=== PATIENT | male | born 1985 | race Caucasian/White ===

== ENCOUNTER 2016-10-15 14:19 | Inpatient (IN) | payer OTHER ==
[~2016-10-15] VITALS: Ht 180.3 cm; Wt 89.8 kg
--- NOTE | 2016-10-15 20:40 | NUR ---
PRE ASSESSMENT Pt received in intake. Pt alert and oriented to name, place, and time. Perrla. Skin warm and dry to touch. Respirations even and unlabored. Bilateral hand tremors noted slightly. PU=029/80, p=80 TEMP=98.0, RR=18 sPO2=98%@ra and denies any pain at this time. Pt with pressured speech noted. Pt anxious, tapping foot and hand fidgety. Informed pt about unit rules and patio passes. Pt. will be accepted to [facility]
[2016-10-15] MEDS ORDERED: MAGNESIUM HYDROXIDE 30 ML LIQUID UDC PO PRN (21:00)
[2016-10-15] MEDS ORDERED: ONDANSETRON 4 MG/2 ML VIAL IM PRN (21:00)
[2016-10-15] MEDS ORDERED: ONDANSETRON ODT 4 MG TAB.RAPDIS SL PRN (21:00)
[2016-10-15] MEDS ORDERED: THIAMINE HCL 200 MG/2 ML VIAL IM ONE (21:00)
[2016-10-15] MEDS ORDERED: MIRALAX 17 GM POWD.PACK PO PRN (21:00)
[2016-10-15] MEDS ORDERED: LOPERAMIDE HCL 2 MG CAPSULE PO PRN ×2 (21:00)
[2016-10-15] MEDS ORDERED: DICYCLOMINE HCL 20 MG TABLET PO PRN (21:00)
[2016-10-15] MEDS ORDERED: LORAZEPAM 2 MG/1 ML VIAL IM PRN (21:00)
[2016-10-15] MEDS ORDERED: LORAZEPAM 1 MG TABLET PO PRN ×2 (21:00)
[2016-10-15] MEDS ORDERED: ACETAMINOPHEN 325 MG TABLET PO PRN (21:00)
[2016-10-15 21:11] LABS: *AMPHETAMINE, URINE NEGATIVE (NEGATIVE); *BARBITURATE, URINE NEGATIVE (NEGATIVE); *CANNABINOID, URINE NEGATIVE (NEGATIVE); *COCCAINE, URINE NEGATIVE (NEGATIVE); *OPIATE, URINE NEGATIVE (NEGATIVE); *PHENCYCLIDINE SCREEN,URINE NEGATIVE (NEGATIVE)
[2016-10-15 21:21] LABS: BASOPHILS # (AUTO) 0.1 K/uL (0.0-8.0); BASOPHILS % (AUTO) 0.9 % (0.0-2.0); EOSINOPHILS # (AUTO) 0.3 K/uL (0.0-0.7); HEMOGLOBIN 14.5 G/DL (14.0-18.0); LYMPHOCYTES # (AUTO) 1.7 K/UL (0.8-4.8); LYMPHOCYTES % (AUTO) 26.2 % (20.5-51.5); MEAN CORPUSCULAR HEMOGLOBIN 31.9 UUG (27.0-31.0); MEAN CORPUSCULAR HGB CONC 34 g/dL (32.0-37.0); MEAN CORPUSCULAR VOLUME 94.4 FL (82.0-92.0); MONOCYTES # (AUTO) 0.7 K/UL (0.1-1.30); MONOCYTES % (AUTO) 10.2 % (0.0-11.0); NEUTROPHILS # (AUTO) 3.7 K/UL (1.8-8.9); NEUTROPHILS % (AUTO) 58.7 % (38.5-71.5); PLATELET COUNT (AUTO) 223 K/UL (150-450); RED BLOOD CELL COUNT(AUTO) 4.55 MIL/UL (4.7-6.1); WHITE BLOOD COUNT (AUTO) 6.5 K/UL (4.0-11.2)
[2016-10-15 21:50] LABS: BILIRUBIN,TOTAL 0.2 mg/dL (0.2-1.0); CREATININE 0.9 mg/dL (0.6-1.3); POTASSIUM 3.8 mmol/L (3.5-5.1); TOTAL PROTEIN, SERUM 7.2 g/dL (6.4-8.2)
--- NOTE | 2016-10-15 22:00 | NUR ---
ADMISSION NOTE : Pt 31 y/o male admitted for ETOH/VODKA dependence. Pt alert and oriented to name, place, and time. Perrla. No history of seizures. Skin warm and dry to touch. Resprirations even and unlabored. Bilateral hand tremors noted. Pt appears anxious, with pressured speech, and is fidgety while in bed during. NKA, FULL CODE, on Reg.Diet. Primary care Provider is Dr. Corazon Lynn from [place], [place]. Skin condition checked : old scabs on left shoulder and knee. Upon admission VJ=155/80, HR=80, RR=16, unlabored and even , SpO2=98% with RA, Temp=98.1, Ccewvx=400fwg, Nowbop=863. Last BM was on 10/15/2016. Pt. was able to provide UDS and blood for the lab. Oriented pt to unit and room. CIWA=4. Safety precautions are in place. Bed locked in lowest position. Both side rails up. Call light within pts reach. Will continue to monitor patient. SUBSTANCE USE HISTORY : Vodka 500ml QD PO since 2009, last drink was on 10/15/16 , uses since 2004 Tobacco chewing QD PO since , last use on MEDICAL HISTORY : Anxiety, Depression, Bipolar, left wrist fracture in 09/2016 [place] HISTORY : X2 Detox X2 REHAB. FAMILY HISTORY : Father and mother are alcoholics, father has Dx HTN.
[2016-10-15] MEDS ORDERED: NICOTINE 14 MG/24HR PATCH TD ONE (22:04)
[2016-10-15] MEDS ORDERED: THIAMINE HCL 200 MG/2 ML VIAL ONE (22:04)
[2016-10-15] MEDS ORDERED: MAG HYDROX/AL HYDROX/SIMETH 30 ML LIQUID UDC ONE (22:07)
[2016-10-15 22:15] LABS: THYROID STIMULATING HORMONE 1.788 mIU/mL (0.358-3.740)
[2016-10-15] MEDS: NICOTINE 14 MG/24HR PATCH TD SCH (22:23)
[2016-10-15] MEDS: MAG HYDROX/AL HYDROX/SIMETH 30 ML LIQUID UDC PO PRN (22:24)
[2016-10-15] MEDS ORDERED: MG T1TAB4 PO (22:59)
[2016-10-15] MEDS ORDERED: BUDE10.22 IH (22:59)
[2016-10-15] MEDS ORDERED: ALBU18HF2 INH (23:00)
[2016-10-15] MEDS ORDERED: LORAZEPAM 1 MG TABLET PO ONE (23:00)
[2016-10-16] VITALS: BP 145/80
[2016-10-16 04:00] VITALS: BP 116/79
--- NOTE | 2016-10-16 06:34 | NUR ---
END OF SHIFT NOTE : Pt 31 y/o male admitted for ETOH/VODKA dependence to [facility] on 10/15/2016. Pt alert and oriented to name, place, and time. Perrla. No history of seizures. Skin warm and dry to touch. Bilateral hand tremors noted. Pt appears anxious, with pressured speech, and is fidgety while in bed during. NKA, FULL CODE, on Reg. Diet. Pt. will be placed on 5 day Ativan taper today, on 10/16/2016. Skin condition checked : old scabs on left shoulder and knee. Pt remains compliant with the treatment plan. No PRNs were given during my shift. Pt. refused his evening dose of Ativan. V/S remain WNL. RR=16, even and unlabored, lungs clear upon auscultation, abdomen soft and non- distended. Pt denies nausea, vomiting and diarrhea. LAST CIWA= 4 at 0400 , INTAKE= 2,000 ml, voided x 3, slept 5 hours. Safety precautions are in place. Bed locked in lowest position. Both side rails up. Call light within pts reach. Will continue to monitor patient.
--- NOTE | 2016-10-16 07:00 | NUR ---
Start of Shift Notes: Received patient in his room. Alert and oriented x 4. Verbally responsive. Able to make his needs known. Respirations even and unlabored. No SOB noted. Skin warm and dry to touch. Abdomen soft and non-distended with (+) BS in all 4 quadrants. No complains of N/V/D or constipation noted. No complains of abdominal discomfort. Bladder non-distended. Voids indepdently. Ambulatory ad evelyn with steady gait. Patient is a 31 year old male admitted for ETOH dependence who was placed on a 5-day Ativan taper as ordered. Has past medical hx of asthma, depression and bipolar disorder. NKA. FULL CODE. Regular diet. on fall and seizure precautions. Educated patient on his current plan of care for the day and his medication regimen. Encouraged oral fluid intake and encouraged group participation to learn new skills to prevent relapse. Will continue to monitor closely.
[2016-10-16 08:00] VITALS: BP 133/69
[2016-10-16] MEDS: MULTIVITAMINS,THERAPEUTIC TABLET PO SCH (08:49)
[2016-10-16] MEDS: FOLIC ACID 1 MG TABLET PO SCH (08:49)
[2016-10-16] MEDS: THIAMINE HCL 100 MG TABLET PO SCH (08:49)
[2016-10-16] MEDS: LORAZEPAM 1 MG TABLET PO SCH ×4 (08:49→20:46)
[2016-10-16] MEDS ORDERED: ATOM40CA PO (08:53)
[2016-10-16] MEDS ORDERED: TUBERCULIN,PURIF.PROT.DERIV. 5 TU/0.1 ML TEST ID ONE (09:00)
[2016-10-16] MEDS: NICOTINE 14 MG/24HR PATCH TD SCH (09:00)
[2016-10-16] MEDS: PATIENT MAY USE OWN MED- MD OK INH SCH ×2 (09:00→16:43)
--- NOTE | 2016-10-16 09:59 | NUR ---
Nicoderm patch and Symbicort not administered: Patient refused Nicoderm patch at this time. Education provided on smoking cessation. Still requires further education on smoking cessation. Symbicort refused at this time. Education provided on the risk and the benefits but patient still refused. Per MD, he feel OK at this time. Lung sounds clear bilaterally. No wheezing heard on bilateral lung pak.
[2016-10-16 12:00] VITALS: BP 138/80
[2016-10-16] MEDS: MAG HYDROX/AL HYDROX/SIMETH 30 ML LIQUID UDC PO PRN (12:03)
--- NOTE | 2016-10-16 12:03 | NUR ---
Mylanta and Imodium 4 mg PO given: Patient noted with x 2 episodes of loose watery stools and complains of GI upset. Medicated patient with Mylanta 30cc and Imodium 4 mg PO as ordered. Will monitor for effectiveness.
--- NOTE | 2016-10-16 13:03 | NUR ---
Re-assessment: Per patient, PRN Mylanta and Imodium were effective in reducing GI upset. No further episodes of diarrhea noted since med administration.
--- NOTE | 2016-10-16 14:23 | NUR ---
Clinician encouraged client to attend groups and explained the group times.
[2016-10-16 16:00] VITALS: BP 109/60
--- NOTE | 2016-10-16 18:50 | NUR ---
End of Shift Notes: Patient is a 31 year old male admitted for ETOH dependence who was placed on a 5-day Ativan taper as ordered. No adverse reactions noted. Patient is on his 1st day of his taper. Tolerating well. Prior to admission, patient was using 500ml of Vodka. VS monitored closely. No significant abnormalities noted. Withdrawal symptoms were closely monitored. Initial CIWA 13. Patient presented with anxiety, agitation, facial flushing, and gross tremors. Last CIWA 5. Per patient, Ativan has been helping him with his withdrawal symptoms. Patient was able to participate in group despite his withdrawal symptoms. Refused Nicotine gum in AM. Imodium and Mylanta PO given at 1203 for GI upset and diarrhea with help after 1 hour. Educated patient on smoking cessation. Oral fluids encouraged. Safety precautions in place. All needs met and attended. Will continue to monitor closely.
--- NOTE | 2016-10-16 19:00 | NUR ---
PRN MOTRIN, BENADRYL Pt. complains of body ache 6/10, sleeplessness. PRN MOTRIN, BENADRYL given as ordered. Safety precautions are in place. Bed locked in lowest position. Both side rails up. Call light within pts reach. Will continue to monitor patient.
--- NOTE | 2016-10-16 19:15 | NUR ---
START OF SHIFT NOTE : Pt 31 y/o male admitted for ETOH/VODKA dependence to [facility] on 10/15/2016. Pt alert and oriented to name, place, and time. Perrla. No history of seizures. Skin warm and dry to touch. Bilateral hand tremors noted. Pt appears anxious, with pressured speech, and is fidgety while in bed during. NKA, FULL CODE, on Reg. Diet. Pt. will placed on 5 day Ativan taper today on 10/16/2016. Skin condition checked : old scabs on left shoulder and knee. Pt remains compliant with the treatment plan. V/S remain WNL. RR=16, even and unlabored, lungs clear upon auscultation, abdomen soft and non- distended. Pt denies nausea, vomiting. Safety precautions are in place. Bed locked in lowest position. Both side rails up. Call light within pts reach. Will continue to monitor patient.
[2016-10-16 20:00] VITALS: BP 133/87
[2016-10-16] MEDS: IBUPROFEN 400 MG TABLET PO PRN (20:46)
[2016-10-16] MEDS: diphenhydrAMINE 50 MG CAPSULE PO PRN (20:46)
--- NOTE | 2016-10-16 22:00 | NUR ---
REASSESSMENT PRN GREG JEREZ Pt. is sleeping, RR=16, unlabored and even. Safety precautions are in place. Bed locked in lowest position. Both side rails up. Call light within pts reach. Will continue to monitor patient.
[2016-10-17 04:00] VITALS: BP 119/72
--- NOTE | 2016-10-17 06:46 | NUR ---
END OF SHIFT NOTE : Pt 31 y/o male admitted for ETOH/VODKA dependence to [facility] on 10/15/2016. Pt alert and oriented to name, place, and time. Perrla. No history of seizures. Skin warm and dry to touch. Bilateral hand tremors noted. Pt appears anxious, with pressured speech, and is fidgety while in bed during. NKA, FULL CODE, on Reg. Diet. Pt. will placed on 5 day Ativan taper today on 10/16/2016. Skin condition checked : old scabs on left shoulder and knee. Pt remains compliant with the treatment plan. V/S remain WNL. RR=16, even and unlabored, lungs clear upon auscultation, abdomen soft and non- distended. Pt denies nausea, vomiting. Pt remains compliant with the treatment plan. No PRNs were given during my shift. V/S remain WNL. RR=16, even and unlabored, lungs clear upon auscultation, abdomen soft and non- distended. Pt denies nausea, vomiting and diarrhea. LAST CIWA=4 at 0400 , CSITKM=693 ml, voided x 1, slept 8 hours. Safety precautions are in place. Bed locked in lowest position. Both side rails up. Call light within pts reach. Will continue to monitor patient.
--- NOTE | 2016-10-17 06:47 | NUR ---
Start of Shift Notes: Received patient in his room. Alert and oriented x 4. Verbally responsive. Able to make his needs known. Respirations even and unlabored. No SOB noted. Skin warm and dry to touch. Abdomen soft and non-distended with (+) BS in all 4 quadrants. No complains of N/V/D or constipation noted. No complains of abdominal discomfort. Bladder non-distended. Voids indepdently. Ambulatory ad evelyn with steady gait. Patient is a 31 year old male admitted for ETOH dependence who was placed on a 5-day Ativan taper as ordered. Has past medical hx of asthma, depression and bipolar disorder. NKA. FULL CODE. Regular diet. on fall and seizure precautions. Educated patient on his current plan of care for the day and his medication regimen. Encouraged oral fluid intake and encouraged group participation to learn new skills to prevent relapse. PRN Motrin and Benadryl was given during the night. Slept for 8 hours. CIWA 8. Will continue to monitor closely.
[2016-10-17 08:00] VITALS: BP 110/76
[2016-10-17 08:08] LABS: HEPATITIS B SURFACE AG Negative (Negative)
[2016-10-17] MEDS: THIAMINE HCL 100 MG TABLET PO SCH (08:12)
[2016-10-17] MEDS: LORAZEPAM 1 MG TABLET PO SCH ×3 (08:12→21:02)
[2016-10-17] MEDS: FOLIC ACID 1 MG TABLET PO SCH (08:13)
[2016-10-17] MEDS: MULTIVITAMINS,THERAPEUTIC TABLET PO SCH (08:13)
[2016-10-17] MEDS: NICOTINE 14 MG/24HR PATCH TD SCH (08:13)
[2016-10-17] MEDS: PATIENT MAY USE OWN MED- MD OK INH SCH ×2 (08:17→17:00)
[2016-10-17 12:00] VITALS: BP 118/71
--- NOTE | 2016-10-17 12:56 | NUR ---
Clonidine 0.1mg PO given: Patient complained of chills, sweats, anxiety and restlessness. Unable to be redirected with non-pharmacological interventions. Medicated patient with Clonidine 0.1mg PO as ordered. Will monitor for effectiveness.
[2016-10-17] MEDS: CLONIDINE HCL 0.1 MG TABLET PO PRN (13:56)
--- NOTE | 2016-10-17 13:56 | NUR ---
Re-assessment: Per patient, PRN Clonidine was mildly effective in reducing anxiety, restlessness and sweats. Encouraged patient deep breathing exercises and progressive muscle relaxation. Per patient, he will try. Will continue to monitor.
--- NOTE | 2016-10-17 15:12 | NUR ---
MD Communication: Patient noted with CIWA 16. Noted with severe agitation, facial flushing, fidgeting, and severely anxious. NJ 100 at rest. Notified MD [place]. Per MD, administer Ativan 2 mg PO x 1 now. is away from the computer and is unable to enter in orders at this time. Telephone order received. Orders readback. Orders noted and carried out.
[2016-10-17] MEDS ORDERED: LORAZEPAM 1 MG TABLET PO ONE (15:15)
--- NOTE | 2016-10-17 15:19 | NUR ---
Ativan 2 mg PO x 1 dose given: CIWA 16, patient noted with restlessness , fidgeting, facial flushing, sweating, severe anxiety and restlessness. Medicated patient with Ativan 2 mg PO as ordered. Will monitor for effectiveness.
--- NOTE | 2016-10-17 15:45 | NUR ---
Therapist prompted client to attend daily group sessions. Therapist reminded client of group times. Client stated that he would attend the next session.
[2016-10-17 16:00] VITALS: BP 104/53
--- NOTE | 2016-10-17 16:12 | NUR ---
Re-assessment: CIWA 6. Less anxiety, less agitation and mild sweats noted. Ativan 2 mg PO x 1 effective in reducing patient's withdrawal symptoms.
--- NOTE | 2016-10-17 17:51 | NUR ---
Symbicort inhaler not administered: Patient noted to be in bed with eyes closed. Breathing even and unlabored. Symbicort inhaler not administered at this time.
--- NOTE | 2016-10-17 18:49 | NUR ---
End of Shift Notes: Patient is a 31 year old male admitted for ETOH dependence who was placed on a 5-day Ativan taper as ordered. No adverse reactions noted. Patient is on his 1st day of his taper. Tolerating well. Prior to admission, patient was using 500ml of Vodka. VS monitored closely. No significant abnormalities noted. Withdrawal symptoms were closely monitored. Initial CIWA 4. Patient presented with anxiety, agitation, facial flushing, and gross tremors. Medicated patient with Clonidine at 1356 with mild help. At 1519, patients CIWA 16 noted with facial flushing and severe anxiety and agitation. Medicated patient with x 1 dose of Ativan 2 mg PO with help after 1 hour. Last CIWA 6. Per patient, Ativan has been helping him with his withdrawal symptoms. Patient was able to participate in group despite his withdrawal symptoms. Educated patient on smoking cessation. Oral fluids encouraged. Safety precautions in place. All needs met and attended. Will continue to monitor closely.
--- NOTE | 2016-10-17 19:15 | NUR ---
START OF SHIFT NOTE : Pt 31 y/o male admitted for ETOH/VODKA dependence to [facility] on 10/15/2016. Pt alert and oriented to name, place, and time. Perrla. No history of seizures. Skin warm and dry to touch. Bilateral hand tremors noted. Pt appears anxious, with pressured speech, and is fidgety while in bed during. NKA, FULL CODE, on Reg. Diet. Pt. placed on 5 day Ativan taper on 10/16/2016. Skin condition checked : old scabs on left shoulder and knee. Pt remains compliant with the treatment plan. V/S remain WNL. RR=16, even and unlabored, lungs clear upon auscultation, abdomen soft and non- distended. Pt denies nausea, vomiting. Safety precautions are in place. Bed locked in lowest position. Both side rails up. Call light within pts reach. Will continue to monitor patient.
[2016-10-17 20:00] VITALS: BP 129/79
--- NOTE | 2016-10-17 21:00 | NUR ---
PRN Nicotine gum given
[2016-10-17] MEDS: NICOTINE POLACRILEX 4 MG GUM-PK OF TEN BC PRN (21:02)
[2016-10-17] MEDS: GABAPENTIN 300 MG CAPSULE PO SCH (21:03)
--- NOTE | 2016-10-18 06:43 | NUR ---
END OF SHIFT NOTE : Pt 31 y/o male admitted for ETOH/VODKA dependence to [facility] on 10/15/2016. Pt alert and oriented to name, place, and time. Perrla. No history of seizures. Skin warm and dry to touch. Bilateral hand tremors noted. Pt appears anxious, with pressured speech, and is fidgety while in bed during. NKA, FULL CODE, on Reg. Diet. Pt. placed on 5 day Ativan taper on 10/16/2016. Skin condition checked : old scabs on left shoulder and knee. Pt remains compliant with the treatment plan. V/S remain WNL. RR=16, even and unlabored, lungs clear upon auscultation, abdomen soft and non- distended. Pt denies nausea, vomiting. Pt remains compliant with the treatment plan. PRN Nicotine gum given during my shift. V/S remain WNL. RR=16, even and unlabored, lungs clear upon auscultation, abdomen soft and non- distended. Pt denies nausea, vomiting and diarrhea. LAST CIWA=4 at 0400 , BYBVML=[id number] ml, voided x 2, slept 8 hours. Safety precautions are in place. Bed locked in lowest position. Both side rails up. Call light within pts reach. Will continue to monitor patient.
--- NOTE | 2016-10-18 07:00 | NUR ---
Start of Shift Notes: Received patient in his room. Alert and oriented x 4. Verbally responsive. Able to make his needs known. Respirations even and unlabored. No SOB noted. Skin warm and dry to touch. Abdomen soft and non-distended with (+) BS in all 4 quadrants. No complains of N/V/D or constipation noted. No complains of abdominal discomfort. Bladder non-distended. Voids indepdently. Ambulatory ad evelyn with steady gait. Patient is a 31 year old male admitted for ETOH dependence who was placed on a 5-day Ativan taper as ordered. Has past medical hx of asthma, depression and bipolar disorder. NKA. FULL CODE. Regular diet. on fall and seizure precautions. Educated patient on his current plan of care for the day and his medication regimen. Encouraged oral fluid intake and encouraged group participation to learn new skills to prevent relapse. Slept for 8 hours. Will continue to monitor closely.
[2016-10-18 08:00] VITALS: BP 111/67
[2016-10-18] MEDS: FOLIC ACID 1 MG TABLET PO SCH (08:14)
[2016-10-18] MEDS: NICOTINE 14 MG/24HR PATCH TD SCH (08:14)
[2016-10-18] MEDS: LORAZEPAM 1 MG TABLET PO SCH ×4 (08:14→20:32)
[2016-10-18] MEDS: THIAMINE HCL 100 MG TABLET PO SCH (08:14)
[2016-10-18] MEDS: GABAPENTIN 300 MG CAPSULE PO SCH ×3 (08:14→20:33)
[2016-10-18] MEDS: MULTIVITAMINS,THERAPEUTIC TABLET PO SCH (08:14)
[2016-10-18] MEDS: MAG HYDROX/AL HYDROX/SIMETH 30 ML LIQUID UDC PO PRN ×2 (08:16→20:32)
--- NOTE | 2016-10-18 08:16 | NUR ---
Mylanta given: Patient complains of GI upset. Medicated patient with Mylanta 30cc PO as ordered. Will monitor for effectiveness.
[2016-10-18] MEDS: PATIENT MAY USE OWN MED- MD OK INH SCH ×2 (08:17→16:22)
--- NOTE | 2016-10-18 09:16 | NUR ---
Re-assessment: Per patient, PRN Mylanta was effective in reducing GI upset.
[2016-10-18] MEDS: PATIENT MAY USE OWN MED- MD OK INH PRN ×2 (10:51→20:31)
--- NOTE | 2016-10-18 10:51 | NUR ---
Albuterol inhaler given: Patient complain of mild SOB. O2 sat 95%. Wheezing noted. Albuterol inhaler given. Will monitor for effectiveness.
--- NOTE | 2016-10-18 11:21 | NUR ---
Re-assessment: Per patient, Albuterol inhaler was effective in eliminating SOB.
[2016-10-18] MEDS ORDERED: diphenhydrAMINE 50 MG CAPSULE PO ONE (11:30)
--- NOTE | 2016-10-18 11:42 | NUR ---
Benadryl 25 mg PO given: Patient noted with complain of itching. Notified MD [place]. Per MD, it is related to ETOH withdrawal symptoms. No rashes noted all over skin area. MD [place] aware with orders to administer Benadryl 25 mg PO x 1 now.
[2016-10-18 12:00] VITALS: BP 134/82
--- NOTE | 2016-10-18 12:42 | NUR ---
Re-assessment: Per patient, Benadryl 25 mg PO was effective in reducing itching.
[2016-10-18 16:00] VITALS: BP 125/82
[2016-10-18] MEDS: CLONIDINE HCL 0.1 MG TABLET PO PRN (18:30)
--- NOTE | 2016-10-18 18:31 | NUR ---
Clonidine 0.1mg PO given: Patient noted with anxiety, agitation, and mild tremors. Unable to be redirected with non-pharmacological interventions. Medicated patient with Clonidine 0.1mg PO as ordered. Will monitor for effectiveness.
--- NOTE | 2016-10-18 18:54 | NUR ---
End of Shift Notes: Patient is a 31 year old male admitted for ETOH dependence who was placed on a 5-day Ativan taper as ordered. No adverse reactions noted. Tolerating well. Prior to admission, patient was using 500ml of Vodka. VS monitored closely. No significant abnormalities noted. Withdrawal symptoms were closely monitored. Initial CIWA 8. Patient presented with anxiety, agitation, Last CIWA 3. Medicated patient with Mylanta for GI upset at 0816, Albuterol at 1051 and Benadryl at 1051 for itching with help after 1 hour. Per patient, Ativan has been helping him with his withdrawal symptoms. Clonidine 0.1mg PO was given at 1831 due to anxiety, agitation and sweats. Patient was able to participate in group despite his withdrawal symptoms. Educated patient on smoking cessation. Oral fluids encouraged. Safety precautions in place. All needs met and attended. Will continue to monitor closely.
--- NOTE | 2016-10-18 19:15 | NUR ---
Start of Shift Note: Patient is a 31 y/o male admitted on 10/15/16 for ETOH dependence. Patient reported drinking 500ml Vodka daily for 7 years. Patient has Asthma, Depression, Bipolar disorder, & hx of left wrist fracture. Patient denies any hx of seizure. Patient is on a regular diet with no known food and drug allergies. Full Code status. Patient is on a 5-day Ativan taper and tolerating well. Last CIWA is 3. Patient was given PRN Mylanta, Benadryl, Albuterol and Clonidine during day shift. Patient is alert & oriented x4. Respiration even & unlabored. No shortness of breath noted. Abdomen soft & non-distended. No nausea/vomting noted. Patient presented with complains of 3/10 body aches, sweating and anxiety. No headache noted. Patient denies hallucinations. Safety precautions are in place. Bed locked in lowest position. Both side rails up. Call light within pt's reach. Will continue to monitor patient.
[2016-10-18 20:00] VITALS: BP 139/78
[2016-10-18] MEDS: diphenhydrAMINE 50 MG CAPSULE PO PRN (20:32)
[2016-10-18] MEDS: IBUPROFEN 400 MG TABLET PO PRN (20:32)
--- NOTE | 2016-10-18 20:32 | NUR ---
PRN Administration Patient presented with complains of 3/10 body aches, heartburn and shortness of breath. No wheezing noted. Patient also requested for medication to help him sleep. PRN Motrin, Maalox, Benadryl and Albuterol administered as ordered. Will monitor for effectiveness of medication.
--- NOTE | 2016-10-18 21:32 | NUR ---
PRN Reassessment Patient still awake at this time. Patient verbalized relief from pain, heartburn and denies shortness of breath. PRn medications effective. Will continue to monitor patient.
[2016-10-19] VITALS: BP 99/62
[2016-10-19 04:00] VITALS: BP 106/58
--- NOTE | 2016-10-19 07:18 | NUR ---
End of Shift Note: Patient had an uneventful night. Patient remained stable with no significant changes in condition noted. Patient continued on his Ativan taper and tolerating well. Last CIWA is 5. Pt was given PRN Motrin for body aches, Maalox for heartburn and Benadryl for sleep and were effective. Patient remained compliant with treatment plan. Patient still asleep at this time with no s/s of distress noted. Patient slept for a total of 8 hours. Pt consumed 1905 ml of fluids. Voided 3x with no bowel movement. All needs attended & met. Safety precautions are in place. Will endorse pt to day shift nurse.
--- NOTE | 2016-10-19 08:00 | NUR ---
START OF SHIFT Pt 31 y/o male admitted for etoh dependence. Pt received in room on bed with eyes closed resting, but easily arousable to name. Pt alert and oriented to name, place, and time. Perrla. Skin warm and slightly moist to touch. Respirations even and unlabored. It was reported that pt slept for 6 hours last night. Bed on lowest position with side rails x2 up for safety. Call light within reach. No distress noted at this time.
[2016-10-19 08:42] VITALS: BP 94/54
[2016-10-19] MEDS: PATIENT MAY USE OWN MED- MD OK INH SCH ×2 (08:47→17:00)
[2016-10-19] MEDS: FOLIC ACID 1 MG TABLET PO SCH (08:47)
[2016-10-19] MEDS: THIAMINE HCL 100 MG TABLET PO SCH (08:47)
[2016-10-19] MEDS: GABAPENTIN 300 MG CAPSULE PO SCH ×3 (08:47→20:37)
[2016-10-19] MEDS: MULTIVITAMINS,THERAPEUTIC TABLET PO SCH (08:47)
[2016-10-19] MEDS: LORAZEPAM 1 MG TABLET PO SCH ×2 (08:47→14:02)
[2016-10-19] MEDS: NICOTINE 14 MG/24HR PATCH TD SCH (08:48)
[2016-10-19] MEDS: MAG HYDROX/AL HYDROX/SIMETH 30 ML LIQUID UDC PO PRN (11:55)
[2016-10-19] MEDS: PATIENT MAY USE OWN MED- MD OK INH PRN (11:56)
--- NOTE | 2016-10-19 11:58 | NUR ---
PRN Pt with some wheezing noted. Albuterol inh prn per MD order given and tolerated well.
--- NOTE | 2016-10-19 11:59 | NUR ---
PRN Pt stated has heartburn. Maloxx po prn per MD order given and tolerated well.
[2016-10-19 12:33] VITALS: BP 132/82
--- NOTE | 2016-10-19 12:58 | NUR ---
PRN eval Pt with no respiratory distress noted. Pt observed in room on bed watching television. No distress noted.
[2016-10-19] MEDS: CLONIDINE HCL 0.1 MG TABLET PO PRN (14:02)
[2016-10-19] MEDS: diphenhydrAMINE 50 MG CAPSULE PO PRN ×2 (14:49→20:37)
--- NOTE | 2016-10-19 14:50 | NUR ---
PRN Pt with c/o itchiness of the back and arms. Benedrayl po prn per MD order given and tolerated well.
--- NOTE | 2016-10-19 15:50 | NUR ---
PRN EVAL Pt observed in bed with eyes closed resting, but easily arousable to name.
[2016-10-19 17:19] VITALS: BP 129/76
--- NOTE | 2016-10-19 18:41 | NUR ---
END OF SHIFT Pt 31 y/o male admitted fro etoh dependence. Pt alert and oriented to name, place, and time. Perrla. Skin warm and slightly moist to touch. Respirations even and unlabored. Bilateral hand tremors noted slightly. Pt observed in dining room today and did attend group activity. Pt medication compliant and tolerated well. No ASE noted. Bed on lowest position with side rails x2 up for safety. Call light within reach. No distress noted at this time.
[2016-10-19] MEDS ORDERED: LORAZEPAM 1 MG TABLET PO ONE (19:15)
--- NOTE | 2016-10-19 19:15 | NUR ---
Start of Shift Note: Patient is a 31 y/o male admitted on 10/15/16 for ETOH dependence. Patient reported drinking 500ml Vodka daily for 7 years. Patient has Asthma, Depression, Bipolar disorder, & hx of left wrist fracture. Patient denies any hx of seizure. Patient is on a regular diet with no known food and drug allergies. Full Code status. Patient is on a 5-day Ativan taper and tolerating well. Last CIWA is 3. Patient was given PRN Maalox, Catapres & Benadryl and a one time dose of Ativan 1mg during day shift. Patient is alert & oriented x4. Respiration even & unlabored. No shortness of breath noted. Abdomen soft & non-distended. No nausea/vomiting noted. Patient is complaining of anxiety and restlessness. Patient appears agitated. No headache noted. Patient denies hallucinations. Safety precautions are in place. Bed locked in lowest position. Both side rails up. Call light within pt's reach. Will continue to monitor patient.
[2016-10-19] MEDS: NICOTINE POLACRILEX 4 MG GUM-PK OF TEN BC PRN (19:33)
--- NOTE | 2016-10-19 19:33 | NUR ---
PRN Nicotine gum Patient requesting for medication to help him with his cravings. PRN Nicotine gum administered as ordered. Will continue to monitor patient.
[2016-10-19 20:00] VITALS: BP 133/81
--- NOTE | 2016-10-19 20:37 | NUR ---
PRN Benadryl Patient requesting for medication to help him sleep. PRN Benadryl administered as ordered. Will continue to monitor patient.
[2016-10-19] MEDS ORDERED: LORAZEPAM 1 MG TABLET PO SCH (21:00)
[2016-10-20] VITALS: BP 103/58
--- NOTE | 2016-10-20 | NUR ---
Ciwa deferred Patient asleep at this time. Unable to assess for CIWA. Pt is not in any distress. Will continue to monitor patient.
[2016-10-20 04:00] VITALS: BP 95/52
--- NOTE | 2016-10-20 04:00 | NUR ---
Ciwa deferred Patient asleep at this time. Unable to assess for CIWA. Pt is not in any distress. Will continue to monitor patient.
--- NOTE | 2016-10-20 07:01 | NUR ---
End of Shift Note: Patient had an uneventful night. Patient continues on his Ativan taper and tolerating well. Patient remained compliant with medications. Last CIWA is 3. Pt was given PRN Nicotine gum for cravings and Benadryl for sleep during my shift. Patient reported that medications is effective in controlling his withdrawal symptoms. Patient remained stable and Vitals remains WNL. Will continue to encourage pt to attend groups to learn and develop coping skills to prevent relapse. Pt still asleep at this time with no s/s of distress noted. Pt was able to sleep for a total of 8 hours. Consumed 1350ml of fluids. Voided 2x with no bowel movement. All needs attended met. Safety measures in place. Will endorse pt to day shift nurse.
[2016-10-20 08:00] VITALS: BP 114/67
--- NOTE | 2016-10-20 08:00 | NUR ---
START OF SHIFT Pt 31 y/o male admitted for etoh dependence. Pt received in room on bed with eyes closed resting, but easily arousable to name. Pt alert and oriented to name, place, and time. Perrla. Skin warm and slightly moist to touch. Respirations even and unlabored. It was reported that pt slept for 8 hours last night. Bed on lowest position with side rails x2 up for safety. Call light within reach. No distress noted at this time.
[2016-10-20] MEDS: THIAMINE HCL 100 MG TABLET PO SCH (08:38)
[2016-10-20] MEDS: PATIENT MAY USE OWN MED- MD OK INH SCH ×2 (08:38→17:35)
[2016-10-20] MEDS: GABAPENTIN 300 MG CAPSULE PO SCH ×3 (08:38→20:00)
[2016-10-20] MEDS: NICOTINE 14 MG/24HR PATCH TD SCH (08:38)
[2016-10-20] MEDS: FOLIC ACID 1 MG TABLET PO SCH (08:38)
[2016-10-20] MEDS: MULTIVITAMINS,THERAPEUTIC TABLET PO SCH (08:38)
[2016-10-20] MEDS ORDERED: LORAZEPAM 1 MG TABLET PO SCH ×2 (09:00)
--- NOTE | 2016-10-20 10:14 | NUR ---
ENDORSEMENT Endrosed pt to nurse. VS wnl. No distress noted.
--- NOTE | 2016-10-20 10:15 | NUR ---
Rcvd endorsement from day shift nurse, client is a 31 y/o admitted for alcohol withdrawal, he completed 5 day Ativan taper with no ASE. Last CIWA 1 @ 0900. Client presents with anxious mood, flat affect, he states "I feel better today, a little anxious mostly." He declined Vistaril at this time. Encouraged to increase fluid intake to facilitate detox and to attend group therapy for skills to maitain sobriety. NKS, full code, regular diet. Call light within reach. Side rails x 2 up/padded. Will continue to monitor.
[2016-10-20] MEDS ORDERED: LORAZEPAM 1 MG TABLET PO ONE (11:30)
[2016-10-20 12:00] VITALS: BP 141/92
[2016-10-20] MEDS: CLONIDINE HCL 0.1 MG TABLET PO PRN ×2 (13:24→20:00)
[2016-10-20] MEDS: MAG HYDROX/AL HYDROX/SIMETH 30 ML LIQUID UDC PO PRN ×2 (13:24→21:26)
--- NOTE | 2016-10-20 13:24 | NUR ---
PRN Clonidine, Maalox Client presents with anxiety, irritability manifested by loud voice, pacing, he reports heartburn. Clonidine 0.1mg and Maalox 30mL PO administered. Will continue to monitor. Call light within reach.
[2016-10-20] MEDS: LORAZEPAM 1 MG TABLET PO SCH ×2 (14:02→20:00)
--- NOTE | 2016-10-20 14:24 | NUR ---
PRN Clonidine, Maalox Client appears less anxious and reports relief from heartburn. Client is able to join activities with his peers. medications noted effective. Will continue to monitor. Call light within reach. Addendum: 10/20/16 at 1436 by CARMEL RICHTER RN Reassessment
[2016-10-20 16:42] VITALS: BP 113/66
--- NOTE | 2016-10-20 18:01 | NUR ---
END OF SHIFT Will endorse client to incoming nurse, client completed 5 day Ativan, taper, Dr. Houston extended one more day, Client last dose will be tonight at 21oo, last CIWA 2, to alleviate withdrawal symptoms from alcohol. Client with anxiety, irritability, chills and fatigue. PRN Clonidine for irritability, anxiety and Maalox for heartburn, noted effective. Client continue to present with anxious mood, flat affect. Client was compliant with group therapy. Client is fully ambulatory. Call light within reach. Safety measures rendered and all needs met.
[2016-10-20 20:00] VITALS: BP 138/82
[2016-10-20] MEDS: IBUPROFEN 400 MG TABLET PO PRN (20:00)
--- NOTE | 2016-10-20 20:00 | NUR ---
Start of Shift Pt is a 31 year old male admitted for ETOH dependence, placed on 5 day Ativan taper. Pt reported consuming Vodka 500ml/daily. PMH: Asthma, depression, Bipolar, left wrist fracture 09/2016. NKA, regular diet, fall precautions and full code. Upon assessment, pt presents with anxiety, restlessness, muscle in lower legs, skin noted with moderate sweat, respirations even/unlabored, denies SOB/chest pain, denies n/v/d. Safety measures in place, call light within reach, side rails up x2, bed locked and in low position. Will continue to monitor.
--- NOTE | 2016-10-20 20:01 | NUR ---
PRN Administration Pt reports anxiety, chills throughout body, states, "I feel all over the place, I can't stop moving". Pt skin is clammy, face flushed. Clonidine 0.1mg PRN administered. Motrin 400mg PRN administered for pain in left wrist, rated 5/10. Safety measures in place, will continue to monitor.
--- NOTE | 2016-10-20 21:00 | NUR ---
PRN Reassessment Upon reassessment, pt is in bed, watching TV, states, "I feeling less anxious". Pt reports subsiding pain in left wrist, rated 2-3/10. Needs met, safety measures in place, will continue to monitor.
[2016-10-20] MEDS: PATIENT MAY USE OWN MED- MD OK INH PRN (21:26)
--- NOTE | 2016-10-20 21:26 | NUR ---
PRN Administration Pt reports heartburn, reports difficulty having a bowel movement. Maalox 30ml PRN and Milk of Magnesia 30ml PRN administered. Albuterol inhaler 1-2 puffs administered for SOB. Benadryl 50mg PRN administered for reports of difficulty falling asleep. Safety measures in place. Will continue to monitor.
[2016-10-20] MEDS: diphenhydrAMINE 50 MG CAPSULE PO PRN (21:27)
--- NOTE | 2016-10-20 22:26 | NUR ---
PRN Reassessment Upon reassessment, pt reports relief of heartburn. No reports of bowel movement, and denies SOB. Pt is in bed, and reports getting ready to sleep. Needs met, safety measures in place, will continue to monitor.
--- NOTE | 2016-10-21 | NUR ---
Pt refused to be woken up for 0000 VS CIWA deferred d/t pt sleeping - to assess while pt is awake as ordered Safety measures in place. Will continue to monitor.
--- NOTE | 2016-10-21 04:00 | NUR ---
Pt refused to be woken up for 0400 VS CIWA deferred d/t pt sleeping - to assess while pt is awake as ordered Safety measures in place. Will continue to monitor.
[2016-10-21] MEDS: HYDROXYZINE PAMOATE 25 MG CAPSULE PO PRN ×2 (05:04→18:36)
--- NOTE | 2016-10-21 05:04 | NUR ---
PRN Administration Upon awakening, pt reports feeling anxious. Vistaril 50mg PRN administered. Safety measures in place. Will continue to monitor.
[2016-10-21] MEDS ORDERED: HYDROXYZINE PAMOATE 25 MG CAPSULE ONE (05:10)
--- NOTE | 2016-10-21 06:15 | NUR ---
PRN Reassessment Upon reassessment, pt is resting eyes closed, respirations even/unlabored, no s/s of acute distress noted. Safety measures in place, will continue to monitor.
--- NOTE | 2016-10-21 07:00 | NUR ---
End of Shift Pt is a 31 year old male admitted for ETOH dependence, placed on 5 day Ativan taper. Pt reported consuming Vodka 500ml/daily. PMH: Asthma, depression, Bipolar, left wrist fracture 09/2016. NKA, regular diet, fall precautions and full code. During shift, pt presented with anxiety, restlessness, muscle in lower legs, skin noted with moderate sweat, stated, "I feel all over the place, I can't stop moving" - scheduled taper medications administered, along with Clonidine 0.1mg PRN - effective as reported pt. Motrin 400mg PRN administered for pain in left wrist, rated 5/10 - effective as reported by pt a decreased in pain to 2-3/10. At 6, Maalox 30ml PRN and Mild of Magnesia 30mg PRN administered for heartburn and difficulty using the restroom. Heartburn relief with no reports of a bowel movement as of yet. Albuterol inhaler 1-2 puffs administered for SOB - effective. Benadryl 50mg PRN and Vistaril 50mg PRN administered for anxiety and sleep. Latest CIWA 3, VS stable, pt slept for 6 hours, intake of 1596 ml PO, voids x3 and stool x0. Safety measures in place, call light within reach, side rails up x2, bed locked and in low position. Endorsed to day shift nurse.
--- NOTE | 2016-10-21 07:41 | NUR ---
START OF SHIFT Rcvd endorsement from ongoing nurse, client is a 31 y/o admitted for alcohol withdrawal, he is on last day of an extended 7 days Ativan taper with no ASE. Last CIWA 3 @ 1999. PRN Clonidine for irritability, Vistaril for anxiety, Motrin for L wrist pain, Maalox for heartburn, albuterol for SOB, noted effective, and MOM for constipation no BM yet. Client is in bed, a/o x4. he presents with irritable mood, flat affect, he states "I don't feel good, I am anxious and my legs bothered me most of the night." He reports restless legs and constipation. Skin warm to touch, abdomen soft, nontender, quadrant x 4 active. Encourage client to increase fluid intake to facilitate a BM and to attend group therapy for skills to maintain sobriety. NKA, full code, regular diet. Call light within reach. Side rails x 2 up/padded. Will continue to monitor.
[2016-10-21 08:07] VITALS: BP 117/66
[2016-10-21] MEDS ORDERED: LORAZEPAM 1 MG TABLET PO SCH (09:00)
[2016-10-21] MEDS: NICOTINE 14 MG/24HR PATCH TD SCH (09:39)
[2016-10-21] MEDS: THIAMINE HCL 100 MG TABLET PO SCH (09:39)
[2016-10-21] MEDS: MULTIVITAMINS,THERAPEUTIC TABLET PO SCH (09:39)
[2016-10-21] MEDS: GABAPENTIN 300 MG CAPSULE PO SCH ×3 (09:39→20:06)
[2016-10-21] MEDS: FOLIC ACID 1 MG TABLET PO SCH (09:39)
[2016-10-21] MEDS: PATIENT MAY USE OWN MED- MD OK INH SCH ×2 (09:41→16:25)
[2016-10-21] MEDS ORDERED: MAGNESIUM CITRATE 296 ML BOTTLE PO PRN (11:15)
--- NOTE | 2016-10-21 11:26 | NUR ---
PRN Magnesium Citrate 296mL Client complains of constipation, abdomen soft, nontender, abd quadrants x 4 active, Magnesium Citrate 296 mL PO administered. Encourage client to increase fluid intake and activity as tolerated to facilitate a BM. Call light within reach. Will continue to monitor.
--- NOTE | 2016-10-21 12:26 | NUR ---
Reassessment Magnesium Citrate Client reports no BM at this time, will continue to monitor.
[2016-10-21 12:55] VITALS: BP 123/81
[2016-10-21] MEDS ORDERED: GABA-534 PO (14:05)
[2016-10-21] MEDS ORDERED: NICO1PAT25 TD (14:05)
[2016-10-21] MEDS ORDERED: DIPH50CA37 PO (14:05)
[2016-10-21] MEDS ORDERED: CLON0.1T14 PO (14:05)
[2016-10-21] MEDS ORDERED: HYDR-3895 PO (14:05)
[2016-10-21] MEDS: MAG HYDROX/AL HYDROX/SIMETH 30 ML LIQUID UDC PO PRN ×2 (14:46→19:32)
--- NOTE | 2016-10-21 14:46 | NUR ---
PRN Maalox 30mL Client reports heartburn, Maalox 30mL PO administered, will continue to monitor. Call light within reach.
[2016-10-21 15:26] LABS: *AMPHETAMINE, URINE NEGATIVE (NEGATIVE); *BARBITURATE, URINE NEGATIVE (NEGATIVE); *CANNABINOID, URINE NEGATIVE (NEGATIVE); *COCCAINE, URINE NEGATIVE (NEGATIVE); *OPIATE, URINE NEGATIVE (NEGATIVE); *PHENCYCLIDINE SCREEN,URINE NEGATIVE (NEGATIVE)
--- NOTE | 2016-10-21 15:46 | NUR ---
Reassessment PRN Maalox 30mL Client reports relief from heartburn, Maalox 30mL effective.
[2016-10-21 16:55] VITALS: BP 125/65
[2016-10-21] MEDS: CLONIDINE HCL 0.1 MG TABLET PO PRN (18:36)
--- NOTE | 2016-10-21 18:37 | NUR ---
PRN Clonidine, Vistaril Client presents with anxiety, irritability, cold/chills, Vistaril 50mg and Clonidine 01.mg PO administered. Call light within reach. Will continue to monitor.
--- NOTE | 2016-10-21 19:00 | NUR ---
Start of Shift Patient Received. Patient is in his room, awake, alert and verbally responsive. Breathing even and non labored. No sign of pain or discomfort noted. Patient is a 31 year old male, admitted on 10/15/16 for ETOH Dependence under the care of Dr. Houston. Patient verbalizes no known allergies, wishes to be a full code, following a regular diet, placed on fall precautions, skin noted intact. Per endorsement, patient is set for discharge tomorrow 10/22/16 to [facility]. Patient was given a Mag Citrate which was effective. At 1837 patient was given PRN Clonidine and Vistaril. Per patient, It helped a little but I still feel anxious and edith feel itchy. PRN Clonidine and Vistaril noted to be effective. Will continue to monitor.
--- NOTE | 2016-10-21 19:10 | NUR ---
END OF SHIFT Will endorse client to incoming nurse, client completed 7 day Ativan taper for alcohol withdrawal, tolerated well. Last CIWA 3 @ 1700. Client presents with anxious mood, flat affect and fatigue. PRN Magnesium Citrate for constipation and Maalox for heartburn, noted effective. Clonidine for irritability, cold/chiills, and Vistaril for anxiety incoming nurse to reassess.. Client is schedule for discharge tomorrow, urine drug screen completed. Client was compliant with 2/3 of group therapy. Adequate intake 2460mL, void x 4, stool x 1.Client is fully ambulatory. Call light within reach. Safety measures rendered and all needs me
--- NOTE | 2016-10-21 19:32 | NUR ---
PRN Medication Administration Patient verbalizing increased heartburn. PRN Maalox administered as per order. Will continue to monitor.
[2016-10-21 20:00] VITALS: BP 136/80
[2016-10-21] MEDS: diphenhydrAMINE 50 MG CAPSULE PO PRN ×2 (20:06)
--- NOTE | 2016-10-21 20:06 | NUR ---
PRN Medication Administration Patient is verbalizing increased feelings of itchiness and inability of falling asleep. PRN Benadryl orders administered as per order. Patient was able to verbalize heartburn decreased due to PRN Maalox. Medication noted to be effective. Will continue to monitor.
[2016-10-21] MEDS ORDERED: CALCIUM CARBONATE 500 MG TAB.CHEW PO PRN (20:15)
[2016-10-21] MEDS ORDERED: CLONIDINE HCL 0.1 MG TABLET PO ONE (21:00)
--- NOTE | 2016-10-21 21:20 | NUR ---
PRN Medication Administration Patient noted in bed watching TV. Breathing even and non labored. No signs of pain or discomfort noted. Patient is able to verbalize "Im slowly falling asleep and the itching stopped." PRN Benadryl noted to be effective. Will continue to monitor.
--- NOTE | 2016-10-22 00:40 | NUR ---
Vital Signs Refused CIWA deferred due to patient sleeping. CIWA to be assess while patient is awake as ordered. Safety measures in placed. Patient refused vitals to be rendered and patient stated "please let me sleep." Will continue to monitor. Addendum: 10/22/16 at 0105 by PRASANTH ODELL LVN Amended: Links added.
--- NOTE | 2016-10-22 00:49 | NUR ---
Vital Signs Refused CIWA deferred due to patient sleeping. CIWA to be assess while patient is awake as ordered. Safety measures in placed. Patient refused vitals to be rendered and patient stated "please let me sleep." Will continue to monitor. Addendum: 10/22/16 at 0056 by PRASANTH ODELL LVN Amended: Links added.
--- NOTE | 2016-10-22 04:15 | NUR ---
Vital Signs Refused CIWA deferred due to patient sleeping. CIWA to be assess while patient is awake as ordered. Safety measures in placed. Patient refused vitals and stated "please let me sleep." Will continue to monitor. Addendum: 10/22/16 at 0513 by PRASANTH ODELL LVN Amended: Links added.
[2016-10-22] MEDS: IBUPROFEN 400 MG TABLET PO PRN (06:39)
--- NOTE | 2016-10-22 06:42 | NUR ---
PRN Medication Administration Patient verbalizing pain due to a headache 08/29. PRN Motrin administered. Will endorse to monitor for effectiveness
--- NOTE | 2016-10-22 07:01 | NUR ---
End of Shift Patient is in bed sleeping. Breathing even and non labored. No signs of pain or discomfort. Patient is a 22 year old female admitted on 10/19/16 for Benzo Dependence under the care of Dr. Mancera. Patient is currently receiving 5 day Valium. Patient verbalizes no known allergies, full code, regular diet, placed on fall and seizure precautions, skin noted intact. Past medical history noted as Asthma, seizure (04/2016 and two weeks ago), suicide attempt at the age of 17, Eating disorder, History of Chlamydia, borderline personality Disorder, manic Depression, Anxiety. No PRN medications administered. Patients last CIWA noted to be 4. All needs attended to promptly. Will endorse to continue plan of care as ordered. Addendum: 10/22/16 at 0703 by PRASANTH ODELL LVN Entered in Error: Wrong Patient
--- NOTE | 2016-10-22 07:03 | NUR ---
End of Shift Patient is in bed sleeping. Breathing even and non labored. No signs of pain or discomfort noted. Patient is a 31 year old male, admitted on 10/15/16 for ETOH and Benzo Dependence. No known allergies, Full Code, Regular Diet, Skin noted intact. Placed on fall and Seizure Precautions. Patient completed a 5 day Ativan taper and is set for discharge tomorrow morning to [facility]. Past medical History of Asthma, Depression, Bipolar, and Left wrist fracture 09/2016. No history of seizure. Patient was given PRN Maalox, Benadryl x2 for itching and inability of falling asleep. PRN medications noted to be effective per patient. All needs attended to promptly. Will continue plan of care as ordered.
--- NOTE | 2016-10-22 07:33 | NUR ---
START OF SHIFT NOTE: Received report from second shift supervisor nurse. Pt is a 31 y/o male admitted 10-15-16for alcohol dependence. Pt to be discharged today. Pt is alert and oriented X4. Color good, skin warm and dry. Respirations even and unlabored. Resting in bed. Safety precautions observed. Call light within reach.
[2016-10-22 08:05] VITALS: BP 115/66
[2016-10-22] MEDS: GABAPENTIN 300 MG CAPSULE PO SCH (08:19)
[2016-10-22] MEDS: FOLIC ACID 1 MG TABLET PO SCH (08:20)
[2016-10-22] MEDS: THIAMINE HCL 100 MG TABLET PO SCH (08:20)
[2016-10-22] MEDS: PATIENT MAY USE OWN MED- MD OK INH PRN (08:20)
[2016-10-22] MEDS: MULTIVITAMINS,THERAPEUTIC TABLET PO SCH (08:20)
--- NOTE | 2016-10-22 08:29 | NUR ---
VSS Discharge papers and medication bag signed.
[2016-10-22] MEDS: NICOTINE 14 MG/24HR PATCH TD SCH (09:00)
[2016-10-22] MEDS: PATIENT MAY USE OWN MED- MD OK INH SCH (09:30)
--- NOTE | 2016-10-22 09:34 | NUR ---
Pt discharged in stable condition with all valuables, belongings and home medications. Pt denies SI/HI. To [facility] via [facility] private car.
== END 2016-10-22 09:34 | disposition other institution (70) | DRG 895 ==
LOC: SRC 20:09
PROVIDERS: ADMIT Internal Medicine; ATTEND Internal Medicine
PROC: HZ2ZZZZ Detoxification Services for Substance Abuse Treatment (ICD-10-PCS; principal; 2016-10-15)
PROC: HZ41ZZZ Group Counseling for Substance Abuse Treatment, Behavioral (ICD-10-PCS; 2016-10-16)
PROC: HZ31ZZZ Individual Counseling for Substance Abuse Treatment, Behavioral (ICD-10-PCS; 2016-10-16)
DX: F10.230 Alcohol dependence with withdrawal, uncomplicated (principal); F15.10 Other stimulant abuse, uncomplicated; Y90.0 Blood alcohol level of less than 20 mg/100 ml; J45.20 Mild intermittent asthma, uncomplicated; F17.220 Nicotine dependence, chewing tobacco, uncomplicated; F90.9 Attention-deficit hyperactivity disorder, unspecified type; I15.9 Secondary hypertension, unspecified; F31.9 Bipolar disorder, unspecified; Z82.49 Family history of ischemic heart disease and other diseases of the circulatory system; Z83.3 Family history of diabetes mellitus; Z81.1 Family history of alcohol abuse and dependence; Z79.899 Other long term (current) drug therapy; G25.81 Restless legs syndrome
CPT/HCPCS: 36415; 70030-TC; 80307; 83690; 83735; 84443; 85025; 86580; 86592; 86705; 86803; 87340; 87806; G0480; J3411; Q0163